=== PATIENT | male | born 1965 | race Caucasian/White ===

== ENCOUNTER → 2017-01-20 | Outpatient (CLI) | payer BC ==
[~2017-01-20] MED LIST: PEPCID 20MG TAB20 MG PO
== END ==
LOC: LAB 09:20
DX: J06.0 Acute laryngopharyngitis (principal)

== ENCOUNTER → 2017-12-13 | Outpatient (CLI) | payer BC ==
[2012-08-26 02:07] VITALS: BP 130/93
== END ==
LOC: LAB 12:19
DX: R69 Illness, unspecified (principal); R05 Cough

== ENCOUNTER → 2019-12-12 | Outpatient (CLI) | payer BC ==
[2012-08-26 02:07] VITALS: BP 130/93
[2019-12-12 17:30] LABS: BASO # 0.1 (0.02-0.10); EOS # 0.2 (0.04-0.40); HEMATOCRIT 42.9 % (42.0-52.0); HEMOGLOBIN 14.4 g/dL (13.5-18.0); LYMPH# 2.1 (1.50-4.00); MEAN CELL VOLUME 91 fl (78-100); MEAN CORPUSCULAR HEMOGLOBIN 31 pg (27-31); MEAN CORPUSCULAR HGB CONC 34 g/dL (33-37); MEAN PLATELET VOLUME 9.1 fl (7.4-10.4); MONO # 0.7 (0.20-0.80); NEU # 4.9 (1.40-6.50); PLATELET COUNT 290 K/mm3 (130-400); RED BLOOD COUNT 4.72 M/mm3 (4.20-5.60); RED CELL DISTRIBUTION WIDTH 14.2 % (11.5-14.5)
[2019-12-12 17:43] LABS: ALBUMIN 4.4 g/dL (3.5-5.0); POTASSIUM 3.3 mmol/L (3.5-5.1)
[2019-12-12 17:46] LABS: TOTAL PROTEIN 7.3 g/dL (6.4-8.3)
[2019-12-12 17:48] LABS: TOTAL BILIRUBIN 0.7 mg/dL (0.2-1.2)
[2019-12-12 18:28] LABS: ERYTHROCYTE SEDIMENTATION RATE 1 mm/hr (0-20)
== END ==
LOC: LAB 17:17
PROVIDERS: Internal Medicine
DX: Z00.00 Encounter for general adult medical examination without abnormal findings (principal); Z12.5 Encounter for screening for malignant neoplasm of prostate; Z12.11 Encounter for screening for malignant neoplasm of colon

== ENCOUNTER → 2019-12-21 | Outpatient (CLI) | payer BC ==
[2012-08-26 02:07] VITALS: BP 130/93
== END ==
LOC: LAB 11:31
DX: Z00.00 Encounter for general adult medical examination without abnormal findings (principal); Z12.11 Encounter for screening for malignant neoplasm of colon

== ENCOUNTER → 2024-12-26 | Outpatient (CLI) | payer OTHER | LOC: RAD 14:00 | DX: M25.462 Effusion, left knee (principal); M25.562 Pain in left knee ==